=== PATIENT | male | born 1945 | race Caucasian/White ===

== ENCOUNTER → 2017-05-30 | Outpatient (CLI) | payer OTHER ==
--- NOTE | 2017-05-30 16:38 | US ---
EXAMINATION TYPE: US kidneys/renal and bladder DATE OF EXAM: 05/30/2017 COMPARISON: NONE CLINICAL HISTORY: 71-year-old male Z71.2 ELEV KIDNEY FUNCTIONS. TECHNIQUE: Multiple sonographic images of the kidneys and bladder are obtained. FINDINGS: Right Kidney: 9.4 x 5.3 x 4.3 cm without hydronephrosis. Left Kidney: 10.1 x 6.2 x 6.0 cm without hydronephrosis. Mild circumferential bladder wall thickening may be secondary to chronic bladder wall hypertrophy or underdistention. Both ureteral jets are visualized. Post Void Residual Volume: 10.3 mL IMPRESSION: No hydronephrosis. Postvoid residual volume of 10.3 mL in the bladder. This is within acceptable limi ts.
== END | disposition home or self-care (01) ==
LOC: RADUSWWP 14:49
PROVIDERS: ATTEND Family Medicine
DX: R94.4 Abnormal results of kidney function studies (principal); Z71.2 Person consulting for explanation of examination or test findings
CPT/HCPCS: 76770

== ENCOUNTER → 2025-01-26 | Outpatient (CLI) | payer OTHER ==
--- NOTE | 2025-01-26 20:41 | MR ---
MR lumbar spine wo con Indication: M54.50 LOW BACK PAIN, UNSPECIFIED. Comparison: None. Technique: Noncontrast multiplanar, multiecho MR imaging of the lumbar spine was performed, including T1-weighted and fluid sensitive sequences. FINDINGS: Anatomical variants: Conventional spinal numbering Conus: The conus is normal in appearance and position. Alignment: The alignment of the lumbar spine is normal on these supine, neutral images. Marrow: The visualized bone marrow is normal. Discs: Multilevel disc dessication. T11-T12 seen only on the sagittal images; no posterior disc bulge, canal narrowing, or foraminal narr owing at these levels. T12-L1: No disc protrusion. No spinal canal or foraminal stenosis. L1-L2: No disc protrusion. Symmetric moderate facet arthropathy. Ligamentum flavum hypertrophy. No sp inal canal or foraminal stenosis. L2-L3: Minimal disc bulge. Left greater than right facet arthropathy. Symmetric ligamentum flavum hyp ertrophy. Mild spinal canal stenosis. Patent neural foramen. L3-L4: Small disc bulge. Symmetric facet arthropathy. Mild ligamentum flavum hypertrophy. Mild to mod erate spinal canal stenosis. Moderate right foraminal stenosis. Left foramen patent. L4-L5: Diffuse disc bulge. Right greater than left facet arthropathy. Symmetric ligamentum flavum hyp ertrophy. Mild spinal stenosis. Severe left neural foraminal narrowing with abutment of the exiting n erve root. Moderate right neural foramen. L5-S1: No disc protrusion. Severe right greater than left facet arthropathy. No spinal canal stenosis . Moderate right neural foraminal narrowing with abutment of the exiting nerve root. Left neural fora men patent. 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 Visualized upper sacrum: Unremarkable. Visualized soft tissues: No significant abnormality. IMPRESSION: Varying degrees of multilevel spinal canal stenosis and bilateral neural foraminal narrowing as detai led, no disc herniation. [facility], Workstation: [id number], 01/26/2025 8:38 PM
== END | disposition home or self-care (01) ==
LOC: RADMRIMAIN 13:02
PROVIDERS: ATTEND Family Medicine
DX: M48.061 Spinal stenosis, lumbar region without neurogenic claudication (principal)
CPT/HCPCS: 72148